=== PATIENT | male | born 1960 | race Caucasian/White ===

== ENCOUNTER 2021-03-21 13:57 | Inpatient (IN) | payer MEDICARE, OTHER ==
[~2021-03-21] VITALS: Ht 177.8 cm; Wt 72.3 kg
[~2021-03-21 13:57] MED LIST: 8 HOUR650 MG PO; BASAGLAR K100 UNIT/1 SC; NEURONTIN400 MG PO
[2021-03-21 16:52] LABS: BASOPHIL 0.5 % (0-2); EOSINOPHIL 4.7 % (0-5); HCT 31.6 % (42.0-52.0); HGB 10.1 g/dl (13.2-18.0); LYMPHOCYTE 18.2 % (15-48); MCH 29.9 pg (25.0-31.0); MCV 93.5 fL (78.0-100.0); MONOCYTE 9.4 % (0-12); MPV 9.1 fL (6.0-9.5); NEUTROPHIL 66.5 % (41-80); NRBC 0; PLT 293 K/uL (150-400); RBC 3.38 M/uL (4.70-6.00); RDW 12.7 % (11.5-14.0); WBC 10.7 K/uL (4.0-10.5)
[2021-03-21 17:21] LABS: ALBUMIN 2.4 g/dL (3.4-5.0); BILIRUBIN - TOTAL 0.2 mg/dL (0.2-1.0); BUN/CREAT RATIO (CALC) 18.8 RATIO; C-REACTIVE PROTEIN 0.6 mg/dL (<=0.90); CREATININE 1.86 mg/dL (0.67-1.17); GLOBULIN (CALCULATION) 3.8 g/dL; TOTAL PROTEIN 6.2 g/dL (6.4-8.2)
[2021-03-21 17:22] LABS: POTASSIUM 5.3 mmol/L (3.5-5.1)
[2021-03-21] MEDS ORDERED: CRESTOR10 MG PO (19:14)
[2021-03-21] MEDS ORDERED: CLEOCIN300 MG PO (19:14)
[2021-03-22 05:23] LABS: BASOPHIL 0.4 % (0-2); EOSINOPHIL 5.2 % (0-5); HCT 27.7 % (42.0-52.0); HGB 8.7 g/dl (13.2-18.0); LYMPHOCYTE 19.3 % (15-48); MCH 29.5 pg (25.0-31.0); MCHC 31.4 g/dL (32.0-36.0); MCV 93.9 fL (78.0-100.0); MONOCYTE 11.1 % (0-12); MPV 9.4 fL (6.0-9.5); NEUTROPHIL 63.6 % (41-80); NRBC 0; PLT 282 K/uL (150-400); RBC 2.95 M/uL (4.70-6.00); RDW 12.8 % (11.5-14.0); WBC 9.1 K/uL (4.0-10.5)
[2021-03-22 05:41] LABS: BUN/CREAT RATIO (CALC) 17.1 RATIO; CREATININE 1.87 mg/dL (0.67-1.17); POTASSIUM 5.4 mmol/L (3.5-5.1)
--- NOTE | 2021-03-22 10:56 | NUR ---
1002 PT YELLED INTO ANOTHER PATIENTS ROOM WERE DOMI MAYER WAS AT TO ASK ABOUT THE VENDING MACHINES WHILE HOLDING COAT. DOMI MAYER ASKED PATIENT TO GIVE HER A MOMENT WHILE IN THE OTHER PATIENTS ROOM AND SHE WOULD BE WITH HIM IN JUST A MINUTE. AFTER FINSIHING IN OTHER PATIENTS ROOM DOMI MAYER WENT TO [facility] TO SEE WHAT HE NEEDED, PT WAS NOT IN THE ROOM AT THAT TIME. LEO THOMAS RN WAS NOTIFIED AND SECURITY WAS NOTIFIED. GAVE PATIENT TIME TO COME BACK UP TO THE FLOOR 1030 CALLED HOUSE AGAIN TO STATE THAT PT WAS NOT BACK AND ALL BELONGINGS WERE GONE. APPEARS PT HAS LEFT THE FACILITY. TRIED CALLING PATIENT CELL PHONE TO NOTIFY THAT IV NEEDS TO BE REMOVED. HE DID NOT ANSWER. CALLED AND NOTIFIED THAT PT WOULD NEED TO COME BACK TO HAVE IV REMOVED OR WE WOULD NEED TO CONTACT AUTHORITIES HOUSE WAS NOTIFIED OF CONVERSATION.
--- NOTE | 2021-03-22 12:06 | NUR ---
03/22/21 Patient left AMA
--- NOTE | 2021-03-22 16:16 | NUR ---
PATIENT LEFT AMA BEFORE BEING SEEN BY WOUND CARE.
--- NOTE | 2021-03-22 18:49 | NUR ---
POLICE WERE CONTACTED STATED THAT THEY WENT TO PATIENTS HOUSE AND THAT THE PATIENT HAD PREIOUSLY REMOVED THE IV HIMSELF
== END 2021-03-22 10:15 | disposition left against medical advice (07) | DRG 638 ==
LOC: FER 13:57 → FTCU 17:43
PROVIDERS: Emergency Medicine; ADMIT Internal Medicine
DX: E11.628 Type 2 diabetes mellitus with other skin complications (principal); L03.115 Cellulitis of right lower limb; E11.621 Type 2 diabetes mellitus with foot ulcer; L97.519 Non-pressure chronic ulcer of other part of right foot with unspecified severity; Z20.822 Contact with and (suspected) exposure to COVID-19; E11.22 Type 2 diabetes mellitus with diabetic chronic kidney disease; N18.30 Chronic kidney disease, stage 3 unspecified; E11.40 Type 2 diabetes mellitus with diabetic neuropathy, unspecified; D63.1 Anemia in chronic kidney disease; I12.9 Hypertensive chronic kidney disease with stage 1 through stage 4 chronic kidney disease, or unspecified chronic kidney disease; Z88.2 Allergy status to sulfonamides; Z88.1 Allergy status to other antibiotic agents; Z89.512 Acquired absence of left leg below knee; Z79.4 Long term (current) use of insulin; Z79.899 Other long term (current) drug therapy
CPT/HCPCS: 36415; 73620; 80048; 80053; 82962; 83036; 85025; 86140; 93005; J1650; J3370; J7050; U0002